=== PATIENT | male | born 1995 | race Caucasian/White ===

== ENCOUNTER 2020-11-30 08:49 | Emergency (ER) | payer OTHER ==
[~2020-11-30] VITALS: Ht 177.8 cm; Wt 72.6 kg
[2020-11-30] MEDS ORDERED: Pepcid20 MG PO (09:22)
[2020-11-30] MEDS ORDERED: BENADRYL25 MG PO (09:22)
== END 2020-11-30 09:51 | disposition home or self-care (01) ==
LOC: ER 08:49
DX: L23.7 Allergic contact dermatitis due to plants, except food (principal)
CPT/HCPCS: 96372; 99282; A9270; J1100